=== PATIENT | male | born 1975 | race African-American/Black ===

== ENCOUNTER 2021-08-29 10:10 | Observation (INO) ==
[2021-08-29 11:45] LABS: Basophils % 0.2 % (0.0-0.8); Eosinophils % 0.1 % (0.00-10.9); Hematocrit 40.2 VOL% (42.0-52.0); Hemoglobin 13.3 GM/DL (14.0-18.0); Immature Granulocytes % 0.3 %; Immature Granulocytes Absolute 0.03 #; Lymphocytes # 1.2 10*3/uL (1.4-4.0); Lymphocytes % 12.5 % (21.2-54.2); Mean Corpuscular HGB Conc 33.1 GM/DL (32-36); Mean Corpuscular Volume 83.8 FL (87-102); Mean Platelet Volume 11.3 FL (9.6-12.0); Monocytes % 10.1 % (1.7-12.7); Neutrophils % 76.8 % (38.7-73.9); Platelet Count 191 T/CUMM (130-400); Red Cell Distribution Width 15.7 % (9.3-17.3); White Blood Count 9.9 T/CUMM (4-12)
[2021-08-29 11:48] LABS: Hyaline Casts,Urine 26 /LPF (0-3); Mucus,Urine Occasional /LPF (Occasional); RBC,Urine 12 /HPF (0-4); Squamous Epithelial Cell,Urine Occasional /HPF (0-10)
[2021-08-29 11:49] LABS: Bilirubin,Urine Small mg/dL (Negative); Blood, Urine Small mg/dL (Negative); Glucose,Urine (UA) 500 mg/dL (Negative); Ketones,Urine Trace mg/dL (Negative); Nitrite,Urine Negative (Negative); Protein,Urine 100 mg/dL (Negative); Urine Appearance Clear (Clear); Urine Color Yellow (Yellow); Urine Specific Gravity > 1.030 (1.001-1.035); Urine pH 6.5 (4.5-8.0)
[2021-08-29] MEDS ORDERED: MORPHINE 2 MG/1 ML SYRINGE IV STA (12:00)
[2021-08-29] MEDS ORDERED: ONDANSETRON 4 MG/2 ML VIAL IV STA (12:00)
[2021-08-29 12:10] LABS: Alanine Aminotransferase 23 U/L (16-61); Alkaline Phosphatase 73 U/L (45-117); Aspartate Amino Transferase 16 U/L (0-37); Blood Urea Nitrogen 17 MG/DL (7-18); Calcium 9.5 MG/DL (8.5-10.1); Carbon Dioxide 29 MMOL/L (21-32); Chloride 98 MMOL/L (98-107); Glucose 257 MG/DL (74-106); Osmolality,Calculated 278.2 MOS/KG (273-304); Potassium 3.8 MMOL/L (3.5-5.1); Sodium 134 MMOL/L (136-145); Total Protein 8.3 G/DL (6.4-8.2)
[2021-08-29] MEDS ORDERED: SODIUM CHLORIDE 0.9% 1,000 ML IV STA (12:17)
[2021-08-29] MEDS ORDERED: ALUMINUM/MAGNES/SIMETH MAX STR 30 ML UDCUP PO PRN (13:34)
[2021-08-29] MEDS ORDERED: ACETAMINOPHEN 325 MG TABLET PO PRN (13:34)
[2021-08-29] MEDS ORDERED: BISACODYL 5 MG TABLET PO PRN (13:34)
[2021-08-29] MEDS ORDERED: GLUCAGON 1 MG VIAL IM PRN (13:34)
[2021-08-29] MEDS ORDERED: ALBUTEROL/IPRATROPIUM 3 ML NEB RESP TX PRN (13:34)
[2021-08-29] MEDS ORDERED: ONDANSETRON 4 MG/2 ML VIAL IV PRN (13:34)
[2021-08-29] MEDS ORDERED: DEXTROSE 10% 250 ML BAG IV PRN (13:42)
[2021-08-29] MEDS: CLINDAMYCIN INJ 600 MG/50 ML PREMIX IV SCH ×2 (15:18→20:27)
[2021-08-29] MEDS: MORPHINE 2 MG/1 ML SYRINGE IV PRN ×2 (15:20→20:28)
[2021-08-29] MEDS: LACTATED RINGERS 1,000 ML IV SCH (15:20)
[2021-08-29] MEDS: INSULIN LISPRO 100 UNIT/ML SUBCUT SCH ×2 (16:28→21:18)
[2021-08-29] MEDS ORDERED: ENOXAPARIN 40 MG/0.4 ML SYRINGE SUBCUT SCH (21:00)
[2021-08-30] MEDS: LACTATED RINGERS 1,000 ML IV SCH (01:39)
[2021-08-30] MEDS: CLINDAMYCIN INJ 600 MG/50 ML PREMIX IV SCH ×2 (03:13→08:58)
[2021-08-30] MEDS: MORPHINE 2 MG/1 ML SYRINGE IV PRN (03:49)
[2021-08-30 05:04] LABS: Basophils % 0.3 % (0.0-0.8); Eosinophils # 0.1 10*3/uL (0.0-0.87); Eosinophils % 1.5 % (0.00-10.9); Hematocrit 35.7 VOL% (42.0-52.0); Hemoglobin 11.5 GM/DL (14.0-18.0); Immature Granulocytes % 0.3 %; Immature Granulocytes Absolute 0.02 #; Lymphocytes # 1.4 10*3/uL (1.4-4.0); Lymphocytes % 20.2 % (21.2-54.2); Mean Corpuscular HGB Conc 32.2 GM/DL (32-36); Mean Corpuscular Volume 84.8 FL (87-102); Mean Platelet Volume 11.3 FL (9.6-12.0); Monocytes % 14.7 % (1.7-12.7); Platelet Count 163 T/CUMM (130-400); Red Blood Count 4.21 MC/CUMM (3.8-5.5); Red Cell Distribution Width 15.5 % (9.3-17.3); White Blood Count 6.7 T/CUMM (4-12)
[2021-08-30 05:22] LABS: Calcium 8.4 MG/DL (8.5-10.1); Osmolality,Calculated 274.8 MOS/KG (273-304); Potassium 3.4 MMOL/L (3.5-5.1)
[2021-08-30] MEDS ORDERED: MIDAZOLAM 2 MG/2 ML VIAL ONE (06:45)
[2021-08-30] MEDS ORDERED: fentaNYL 100 MCG/2 ML VIAL ONE (06:45)
[2021-08-30] MEDS ORDERED: KETAMINE 500 MG/10 ML VIAL ONE (06:45)
[2021-08-30] MEDS ORDERED: LIDOCAINE 1%/EPI INJ 20 ML VIAL ONE (06:48)
[2021-08-30] MEDS ORDERED: BUPIVACAINE MPF 0.25% 10 ML VIAL ONE (06:48)
[2021-08-30] MEDS ORDERED: LACTATED RINGERS 1,000 ML IV SCH (07:00)
[2021-08-30] MEDS: INSULIN LISPRO 100 UNIT/ML SUBCUT SCH ×2 (07:31→12:00)
[2021-08-30] MEDS ORDERED: MEPERIDINE 25 MG/1 ML VIAL IV PRN (08:00)
[2021-08-30] MEDS ORDERED: ONDANSETRON 4 MG/2 ML VIAL IV PRN (08:00)
[2021-08-30] MEDS ORDERED: PANTOPRAZOLE 40 MG TABLET PO SCH (09:00)
[2021-08-30] MEDS ORDERED: METOPROLOL TARTRATE 50 MG TABLET PO SCH (09:30)
[2021-08-30] MEDS ORDERED: CHLORTHALIDONE 25 MG TABLET PO SCH (10:00)
[2021-08-30] MEDS ORDERED: propofoL 200 MG/20 ML VIAL IV ONE (10:11)
[2021-08-30] MEDS ORDERED: LIDOCAINE 2% 5 ML VIAL ONE (10:11)
[2021-08-30 11:28] VITALS: BP 122/86
== END 2021-08-30 13:47 | disposition home or self-care (01) ==
LOC: N.ED 10:10 → N.EDINP 10:10 → N.3E 14:14
PROVIDERS: ADMIT Surgery; ATTEND Surgery